=== PATIENT | female | born 1970 | race Caucasian/White ===

== ENCOUNTER 2017-03-19 06:14 | Emergency (ER) | payer OTHER ==
[2017-03-19 08:09] VITALS: BP 120/86
== END 2017-03-19 07:50 | disposition home or self-care (01) ==
LOC: ED 06:14
DX: S91.312A Laceration without foreign body, left foot, initial encounter (principal); W22.8XXA Striking against or struck by other objects, initial encounter; Y93.89 Activity, other specified; Y92.89 Other specified places as the place of occurrence of the external cause; Y99.8 Other external cause status
CPT/HCPCS: J2001